=== PATIENT | female | born 1965 | race Caucasian/White ===

== ENCOUNTER 2024-09-07 10:55 | Emergency (ER) | payer OTHER ==
[~2024-09-07] VITALS: Ht 175.3 cm; Wt 95.3 kg
[~2024-09-07 10:55] MED LIST: KETO10TA2 PO
[2024-09-07] MEDS ORDERED: ENALAPRIL MALEAT5 MG (11:03)
[2024-09-07] MEDS ORDERED: KETOROLAC TROMETHAMINE 60 MG VIAL IM ONE (12:45)
[2024-09-07] MEDS ORDERED: ORPHENADRINE CITRATE 30 MG/ML AMPUL IM ONE (12:45)
== END 2024-09-07 17:43 ==
LOC: ER 10:57
DX: S80.02XA Contusion of left knee, initial encounter (principal); X58.XXXA Exposure to other specified factors, initial encounter; Y93.89 Activity, other specified; Y92.89 Other specified places as the place of occurrence of the external cause; Y99.9 Unspecified external cause status; M17.12 Unilateral primary osteoarthritis, left knee; Z88.8 Allergy status to other drugs, medicaments and biological substances